=== PATIENT | female | born 1990 | race Caucasian/White ===

== ENCOUNTER 2020-05-20 17:18 | Emergency (ER) | payer BC ==
[2020-05-20] MEDS ORDERED: IBUPROFEN600 MG PO (21:05)
[2020-05-20] MEDS ORDERED: CLEOCIN HCL300 MG PO (21:05)
== END 2020-05-20 19:14 | disposition home or self-care (01) ==
LOC: ER1 17:18
DX: N75.1 Abscess of Bartholin's gland (principal); Z90.89 Acquired absence of other organs
CPT/HCPCS: 56420; 87070; 87205; 96372; 99283; J1885